=== PATIENT | male | born 1975 | race Caucasian/White ===

== ENCOUNTER 2024-02-20 09:00 | Outpatient (RCR) | payer BC | END 2024-02-23 | LOC: PT 09:00 | PROVIDERS: ATTEND Physician Assistant | DX: Z47.1 Aftercare following joint replacement surgery (principal); Z96.642 Presence of left artificial hip joint; M25.552 Pain in left hip; M62.81 Muscle weakness (generalized) ==

== ENCOUNTER 2024-03-17 07:00 | Outpatient (RCR) | payer BC, OTHER | END 2024-03-25 | LOC: PT 07:00 | PROVIDERS: ATTEND Physician Assistant | DX: Z47.1 Aftercare following joint replacement surgery (principal); Z96.642 Presence of left artificial hip joint; M25.552 Pain in left hip; M62.81 Muscle weakness (generalized) ==

== ENCOUNTER 2024-03-26 07:20 | Outpatient (RCR) | payer OTHER | END 2024-04-25 | LOC: PT 07:20 | PROVIDERS: ATTEND Physician Assistant | DX: Z96.642 Presence of left artificial hip joint (principal) ==

== ENCOUNTER 2025-04-15 07:45 | Emergency (ER) | payer OTHER ==
[~2025-04-15] VITALS: Ht 182.9 cm; Wt 79.4 kg
[2025-04-15 07:49] VITALS: PULSE 99; RESP 19; TEMP 98.4
[2025-04-15] MEDS ORDERED: AMOX TR-K CLV1 EAC2 PO (09:23)
[2025-04-15] MEDS ORDERED: HYDROCODON-ACE1 EA11 PO (09:24)
[2025-04-15 09:33] VITALS: BP 160/94; RESP 20; O2SAT 99
== END 2025-04-15 09:30 | disposition home or self-care (01) ==
LOC: ER 07:56
DX: M79.605 Pain in left leg (principal); Z96.642 Presence of left artificial hip joint; F17.210 Nicotine dependence, cigarettes, uncomplicated
CPT/HCPCS: 93971; 99284